=== PATIENT | female | born 1995 | race African-American/Black ===

== ENCOUNTER → 2018-01-12 | Outpatient (CLI) | payer OTHER ==
--- NOTE | 2018-01-13 09:38 | RAD ---
Obstetrical ultrasound less than 14 weeks HISTORY: Small for dates. Comparisons: None available at time of exam. TECHNIQUE: Transabdominal transducer with grayscale, M-mode Doppler and duplex Doppler sonography. FINDINGS: Anteverted uterus measures 10.2 x 6.5 x 5.4 cm. Within the lower uterine endometrial canal there is a single gestational sac with a single fetus. Subjectively normal volume of amniotic fluid present. It is too early for identification of the placenta. Maternal right ovary measures 3.8 x 2.3 x 2.4 cm with intact blood flow, the maternal left ovary measures 4.1 x 1.9 x 2.5 cm with intact blood flow, no adnexal masses documented. No subchorionic hemorrhage. crown-rump length 2.0 cm estimating sonographic gestational age of 8 weeks 4 days and date of delivery August 20, 2018. heart rate 180 bpm. No pelvic fluid. It is too early for anatomic evaluation. Maternal cervix not visualized. IMPRESSION: Single living intrauterine fetus with estimated sonographic gestational age of 8 weeks 4 days as described above. This is relative to the clinical gestational age of 9 weeks 6 days. Electronically signed by: Cristopher Cam MD (01/13/2018 9:34 AM) [facility]
== END | disposition home or self-care (01) ==
LOC: US 14:02
PROVIDERS: ATTEND Family Medicine
DX: Z34.01 Encounter for supervision of normal first pregnancy, first trimester (principal); Z3A.08 8 weeks gestation of pregnancy
CPT/HCPCS: 76801

== ENCOUNTER → 2018-03-23 | Outpatient (CLI) | payer OTHER ==
--- NOTE | 2018-03-23 16:08 | KCIC ---
EXAM: Obstetrics sonogram. HISTORY: Large for dates. TECHNIQUE: Sonographic imaging of a gravid uterus was performed. COMPARISON: 01/12/2018. FINDINGS: There is a single intrauterine fetus in cephalic presentation with a heart rate of 140 bpm. There is an anterior placenta without evidence of placenta previa. There is a three-vessel vocal cord with normal insertion. body motion is seen. The exam. The stomach, kidneys, bladder, spine, brain, facial profile and extremities are unremarkable. The cervix is closed and measures 4.9 cm in length. The anatomic fluid index is normal. The biparietal diameter is 4.3 cm, corresponding with 19 weeks and 0 days. The head sequences 15.4 cm, corresponding with 18 weeks and 3 days. The abdominal circumference is 13.5 cm, corresponding with 18 weeks and 6 days. The femoral length is 2.8 cm, corresponding with 18 weeks and 4 days. The estimated gestational age based on combined ultrasound measurements is 18 weeks and 5 days and the estimated weight is 255 g. IMPRESSION: Single intrauterine fetus with a heart rate of 140 bpm and gestational age based on ultrasound measurements of 8 weeks and 5 days. The reported gestational age based on LMP is 19 weeks and 6 days. Electronically signed by: Reema Wagner MD (03/23/2018 4:05 PM) [id number]
== END | disposition home or self-care (01) ==
LOC: KCIC US 15:03
PROVIDERS: ATTEND Family Medicine
DX: O26.842 Uterine size-date discrepancy, second trimester (principal); Z3A.19 19 weeks gestation of pregnancy
CPT/HCPCS: 76805

== ENCOUNTER → 2018-05-25 | Outpatient (CLI) | payer OTHER ==
--- NOTE | 2018-05-25 17:06 | KCIC ---
Obstetrical ultrasound-limited, 05/25/2018: HISTORY: Small for dates There is a single intrauterine fetus in a cephalic orientation. The biparietal diameter measures 6.8 cm compatible with a gestational age of 27-28 weeks. The gestational age based on all of the measurements is 27 weeks and 1 day yielding a sonographic EDC of 08/23/2018. This correlates well with the EDC of 08/19/2018 established on the previous ultrasound exam of 03/23/2018. Normal activity and heart motion were seen. The heart rate is 145 bpm. The weight is currently estimated at 2 pounds and 4 ounces +/- 5 ounces. A full survey was not performed on today's study. The amniotic fluid volume appears to be within normal limits, although an PATRICIA was not calculated at this time. The placenta lies anteriorly with no evidence of a placenta previa. The cervical length is approximately 4.2 cm. IMPRESSION: Single viable intrauterine fetus of approximately 27 weeks gestational demonstrating satisfactory interval growth since 03/23/2018. Electronically signed by: Peterson Looney MD (05/25/2018 5:03 PM) [facility]
== END | disposition home or self-care (01) ==
LOC: KCIC US 14:51
PROVIDERS: ATTEND Family Medicine
DX: O36.5920 Maternal care for other known or suspected poor fetal growth, second trimester, not applicable or unspecified (principal); Z3A.27 27 weeks gestation of pregnancy
CPT/HCPCS: 76805